=== PATIENT | female | born 1965 | race Caucasian/White ===

== ENCOUNTER 2023-10-14 17:38 | Inpatient (IN) | payer OTHER, SELFPAY ==
[2023-10-14] VITALS (10 sets, daily range): BP systolic 113–141; BP diastolic 51–71; BMI 40.6
--- NOTE | 2023-10-14 14:16 | W.PN.CARDCBS ---
Addendum entered and electronically signed by Jose R Cortes DO 10/14/23 17:39:
I saw and examined the patient.
The Branch Service Leader's note was reviewed and I agree with the note.
Comment:
GENERAL: no acute distress, obese
EYE: sclera anicteric
NECK: Supple, no JVD, no carotid bruit appreciated
ENT: normal nose, moist mucosal membranes
CARDIAC: Regular rate and rhythm, +S1/S2, 2/6 holosystolic apical murmur; no rubs, or gallops
CHEST/PULMONARY: Normal effort, clear breath sounds
ABDOMEN: Soft, without focal tenderness or distention
NEUROLOGICAL: Alert and oriented x1 (self only)
SKIN: Warm and dry
PSYCH: Normal and appropriate interaction.
Transfer from [facility] due to syncope requiring CPR and shock for polymorphic VT by EMS, 5-second (associated with nausea and vomiting) and 7-second pause (unclear if associated) and long QT (550-600ms; no prior history), intubated with
TTM. Additionally patient noted to have elevated LFTs, lactic acidosis, significant nausea vomiting following extubation, and new encephalopathy (compared to reported baseline by ) following extubation (A&O x 1). As noted, echo normal LVEF
(55-60%) from [facility].
Will defer implantation of permanent device at this time due to need for further workup regarding inability to lay flat (2/2 nausea and vomiting), possible infection, and encephalopathy. Plan to admit to hospitalist service and appreciate assistance
in her care. Consult to neurology and GI regarding the encephalopathy/neuro status and N/V. Patient has significant alcohol use history, monitor for withdrawal. Monitor on telemetry, daily EKGs. No QT prolonging medications. Zoll Pads on patient and
machine at bedside. Will obtain stat lab work to assess K/Mg/Phos.
Original Note:
Today's Communication / Plan
-
Delay ICD implant at this time until neuro, gi consults
no QT prolonging agents
labs/ekg now
Impression / Plan
-
This is the consult summary for [facility] service.
Full consult scanned into chart.
PCP: Jasmin Swann, DO
CDY: Filemon Hernandez, DO
HPI: This is a 57 y/o white female, PMH anxiety, MVP with mild MR, sees Dr. Hernandez at [facility] for routine followups. Drinks 2-3 glasses/wine nightly.
Suffered a cardiac arrest at home with approx 12 min downtime. EMS was called, CPR with ROSC, intubated and admitted to [facility] ICU. Prehospital EKG strips with polymorphic VT and she was shocked 3 times. Hypotensive with levophed support for a short
time.
EKG this morning in NSR 60s w/prolonged QTc 629msec. She had an episode of n/v that occurred with 5 seconds asystole. She did not get zofran. She then had a 7 second pause, unclear if related to n/v- asymptomatic, no loss of consciousness. Lactic
Acid was 2.1 and LFTs increased. Echo today with preserved LVSF, EF 55-60%, mild MR. Transfer today for EP eval and possible ICD implant.
On arrival, she is awake and alert but confused, doesn't remember names of her doctors, unable to state location, time, events leading to hospitalization.
Transferring from stretcher to bed, she became nauseous while lying flat, she sat up and vomited brown liquid.
IMPRESSION:
VT arrest with syncope
Polymorphic VT
CPR w/ROSC
Intubated for 24 hours with TTM- now extubated, off pressors
Possible anoxic brain injury
Prolonged QTc >600msec
Heart block with up to 7 second pauses
MVP with Mild MR
Nausea/vomiting
Elevated LFTs, lactic acid
Prior cholecystectomy
Daily ETOH
PLAN:
57 y/o, no sig PMH with VT arrest, post CPR with ROSC
needed ICU level care with hypotension/pressors, mechanical ventilation, what appears to be some anoxic brain injury
Unclear if elevated LFTs/Lactic Acid levels r/t sepsis v. shock liver
Tele reveals prolonged QTc >600msec and up to 7 second pauses
She is not on any QT prolonging medications and did not receive any zofran for n/v
Will need Neurology, GI consults
Unable to consent to procedure and is not available at this time
Eventual secondary prevention dual chamber ICD implant after Neuro, GI issues managed.
Will get 12 lead EKG now, with labs.
Case discussed with Dr. Gonsalez and Dr. Cortes
Followup cardiology care with Dr. Hernandez from [facility]
Progress Note - Sales And Support Center Agent
Subjective
Date of Service: October 14, 2023
Nauseous, vomiting
difficult time answering questions re: medical history, doctors
denies cp/palps/dyspnea
Physical Exam
Physical Exam
AAOx1, unable to state place, time, events
RRR S1 S2, soft systolic murmur
Bilat rhonchi, non labored, coughs and clears secretions
Soft abd, + bs, + n/v
Bilat extremities w/palpable distal pulses, no edema
--- NOTE | 2023-10-14 16:23 | PTCARENOTE ---
Pt brought to via EMS, on 2 LPM, NSR on monitor. Vomit in bag/emesis during transport, stated she's nauseas when flat. Mouthful of emesis after moved from stretcher to bed. She is disoriented to time and intermittently to place. Needs frequent
reminders about presence of presence of [facility] cath. She denies visual or auditory hallucinations. No tremors noted, not diaphoretic . Temporal temp was 99.1. Acu check 114. She was put on the monitor and maintained on 2 LPM. SR 70's with prolonged
QT (570)on admission EKG. Good pulses and perfusion throughout, normotensive. Sats 100 %, wet left base, productive cough at times. BALLARD but left pupil larger than right, left leg with slight drift. Seen by Dr Ramirez. She was wiped with CHG wipes.
Skin noted with bruising at former Elizabeth site /Rt wrist. Rt shoulder with puncture site like IO had been present. @ working 20 G IV 's in left arm. No gtts, NSS at ~100mls patent LFA. No belongings. [facility] RN reported no family present' Seferino/spouse
is at work'. [facility] labs collected. Nausea resolved without intervention.
[2023-10-14 16:38] LABS: Glucose - Point of Care 114 mg/dl (70-99)
[2023-10-14 16:48] LABS: Hematocrit 32.1 % (37.0-47.0); Hemoglobin 11.3 g/dL (12.0-16.0); Mean Corp Hgb Conc. 35.2 g/dL (33.0-37.0); Mean Corpuscular Hgb 28.5 pg (27.0-31.0); Mean Corpuscular Volume 81.1 fL (81.0-99.0); Mean Platelet Volume 9.5 fL (7.4-10.4); Platelet Count 225 10^3/uL (130-400); Red Blood Cell Count 3.96 10^6/uL (4.20-5.40); Red Cell Dist. Width 12.9 % (11.5-14.5); White Blood Cell Count 11.6 10^3/uL (4.8-10.8)
--- NOTE | 2023-10-14 16:48 | PTCARENOTE ---
Addendum: face with petechiae, bruising lower lip and tongue. Cortes patent with cloudy urine, quantity sufficient.
[2023-10-14 17:02] LABS: ALT (SGPT) 158 U/L (0-35); AST (SGOT) 144 U/L (14-36); Albumin 3.6 g/dl (3.5-5.0); Alkaline Phosphatase 108 U/L (38-126); Blood Urea Nitrogen 12 mg/dl (7-17); Calcium 8.4 mg/dl (8.4-10.2); Carbon Dioxide 23 mmol/L (22-30); Chloride 109 mmol/L (98-107); Estimated Creatinine Clearance 75 ml/min; Glucose 122 mg/dl (70-99); Magnesium 2.3 mg/dl (1.6-2.3); Phosphorus 4.2 mg/dl (2.5-4.5); Sodium 136 mmol/L (135-145); Total Bilirubin 0.8 mg/dl (0.2-1.3); Total Protein 6.2 g/dl (6.3-8.2); eGFR > 60.00
--- NOTE | 2023-10-14 17:39 | HPS.HSE ---
Family Physician
-
Family Physician: Jasmin Swann
Chief Complaint
-
cardiac arrest
History of Present Illness
57-year-old female with past medical history of anxiety, mitral valve prolapse with mild MR who suffered a cardiac arrest at home with approximately 12 minutes of downtime. EMS was called and CPR was performed with ROSC. Patient was intubated
admitted to [facility] ICU. Prehospital EKG strip showed polymorphic VT and she was shocked 3 times. She was hypotensive and required Levophed for short time. She was extubated after 24 hours with TTM.
EKG this morning showed normal sinus rhythm with prolonged QTc of 629. She had an episode of nausea and vomiting that occurred with 5 seconds of asystole. She did not receive Zofran. She then had a 7-second pause. On arrival she is awake and
alert but confused and does not remember the events leading up to hospitalization.
Patient continued to feel nauseous when lying flat and had an episode of vomiting and brought to [facility]. She complains of some shortness of breath and chest pain.
Patient drinks 2 glasses of wine per night the last drink being the day before she came to the hospital. She denies smoking or any drugs.
She is not aware of her family history because she was adopted.
Medical History
Past Medical History
Past Medical History: Reports Other (anxiety, mitral valve prolapse with mild MR)
Past Surgical History: Reports Cholecystectomy
Social History
Tobacco: Non-smoker
Alcohol: Daily
Drug: None
Family History
Family History: Not pertinent
Allergies / Home Medications
Allergies reflects when Allergies were last updated in [employer].
Home Medications with original date entered in [employer]
Allergy/Medication List:
Allergies
Allergy/AdvReac Type Severity Reaction Status Date / Time
aspirin Allergy Unknown Verified 10/14/23 15:58
Home Medications
Lactobacillus acidophilus 1 cap PO DAILY 10/14/23
cetirizine 10 mg tablet 10 mg PO DAILY PRN allergies 10/14/23
clonazepam 0.5 mg tablet 0.5 mg PO HS 10/14/23
dorzolamide 2 %-timolol 0.5 % (PF) eye drops 1 drp BOTH EYES BID 10/14/23
fluticasone propionate 50 mcg/actuation nasal spray,suspension 2 spray intranasal DAILY PRN allergies 10/14/23
multivitamin 1 tab PO DAILY 10/14/23
Review of Systems
-
History Source: Patient
A 12 point ROS was completed and negative except as noted: Yes
Constitutional: Reports No Symptoms
EENT: Reports No Symptoms
Respiratory: Reports No Symptoms
Cardiac: Reports No Symptoms
Abdomen/GI: Reports See HPI
: Reports No Symptoms
Musculoskeletal: Reports No Symptoms
Skin: Reports No Symptoms
Neurological: Reports No Symptoms
Endocrine: Reports No Symptoms
Hematologic/Lymphatic: Reports No Symptoms
Psych: Reports No Symptoms
Physical Exam
Vital Signs
Vital Signs
Temp Pulse Resp BP Pulse Ox
99.1 F 86 16 113/55 100
10/14/23 15:54 10/14/23 17:15 10/14/23 17:15 10/14/23 16:49 10/14/23 17:15
Physical Exam
General: Well Developed, Well Nourished and No Apparent Distress
HEENT: NormoCephalic, Moist mucous membranes and Atraumatic
Respiratory: Clear
Cardiac: S1/S2 and Regular Rhythm; No Murmur or Rub
GI: Soft, Non Tender, Non Distended and Normal Bowel Sounds; No Organomegaly
Rectal: Deferred by Provider
Musculoskeletal: No Clubbing, No Cyanosis and No Edema
Skin: No Rash
Neuro: Nonfocal/grossly intact
Laboratory Results
-
10/14/23 16:40
10/14/23 16:40
Laboratory Results
Total Bilirubin 0.8 mg/dl (0.2-1.3) 10/14/23 16:40
AST 144 U/L (14-36) H 10/14/23 16:40
ALT 158 U/L (0-35) H 10/14/23 16:40
Alkaline Phosphatase 108 U/L (38-126) 10/14/23 16:40
Data Reviewed
-
Lab Data: Labs Reviewed by me
Old Records: Reviewed
Impression/Plan
-
IMPRESSION:
PLAN:
# VT arrest status post CPR with ROSC
# Polymorphic VT
# Prolonged QTc
# Heart block up to 7-second pause
-EKG here shows QTc of 571
-Eventual ICD after neurological/GI issues managed
# Metabolic encephalopathy secondary to likely anoxic brain injury
-Patient AAO x 1
-Check urinalysis, chest x-ray
-Cardiology to consult neurology
-Cortes catheter placed
# Chest pain secondary to CPR
-Chest x-ray
# Nausea/emesis likely sequelae of cardiac arrest, possible component of alcohol withdrawal
-Avoid antinausea medication due to QTc prolonging effect
-NPO for now
-No abdominal tenderness or evidence of abdominal infection
-Monitor for alcohol withdrawal although not clearly in withdrawal at this time
-Start alcohol withdrawal protocol
-Cardiology to consult GI
# Transaminitis likely due to shock liver due to cardiac arrest/alcohol use
# History of cholecystectomy
-Continue to monitor
Mitral valve prolapse with mild mitral regurgitation
Alcohol use disorder
-Thiamine and folate
-Alcohol withdrawal protocol
Anxiety
-Continue clonazepam
Full code
DVT prophylaxis-heparin
NPO
[2023-10-14 18:28] LABS: Lactic Acid 1.8 mmol/L (0.7-2.0)
--- NOTE | 2023-10-14 19:20 | PTCARENOTE ---
1730 Received patient from cathodic protection technician, oriented to room and call stark. Patient needs frequent reminders about plan of care, as she is asking the same questions over and over. Bed alarm placed. now at bedside.
[2023-10-14] MEDS: COSOPT EYE DROPS 2 DROP BOTH EYES (19:32)
[2023-10-14] MEDS: THIAMINE INJECTION 200 MG IV (19:33)
[2023-10-14] MEDS: HEPARIN 5000 UNITS SC (19:33)
--- NOTE | 2023-10-14 21:33 | PTCARENOTE ---
Received pt from handoff. Pt confused/forgetful. Constantly needs reminding of plan of care. Does not remember what happened to her and how she ended up in hospital. Needs re-orienting that she is now at [facility]. Pt was able to
tell me her name and birthday but not her age. Pt w/ some expressive aphasia. Tele- SR 80-90s. Pt on RA sating 94-97% w/ occ. moist non-prod cough. Pt reports feeling nauseous. Cool washcloth placed on forehead. Reinforcing NPO status. Bed alarm
activated. Pt reports no CP/SOB. Currently resting in bed; call stark w/in reach.
[2023-10-14 21:42] LABS: Glucose - Point of Care 97 mg/dl (70-99)
[2023-10-14] MEDS: KLONOPIN 0.5 MG PO (22:04)
[2023-10-14] MEDS: NSS 1000 IV (23:28)
--- NOTE | 2023-10-14 23:49 | PTCARENOTE ---
No urine output noted for urinalysis. [facility] RN NURSERY made aware. Bladder scan obtained; 25 cc noted. Pt has no urgency to void. IVF ordered and administered per [facility] RN NURSERY.
--- NOTE | 2023-10-14 23:56 | PTCARENOTE ---
Pt w/ 4 beat run of non-sustained VT. Pt resting in bed; asymptomatic. Strip printed and placed in chart.
[2023-10-15 02:57] VITALS: BP 139/71
[2023-10-15 03:30] LABS: Urine Albumin Trace (Neg - Trace); Urine Bilirubin Negative (Negative); Urine Character Clear (Clear); Urine Color Yellow; Urine Glucose Negative (Negative); Urine Ketone 3+ (Negative); Urine Leukocyte Trace (Negative); Urine Nitrite Negative (Negative); Urine Occult Blood Negative (Negative); Urine Specific Gravity 1.025 (<1.030); Urine Urobilinogen Negative (Neg - 1+)
[2023-10-15 03:31] LABS: % Basophils 0.3 % (0-2); % Eosinophils 0.1 % (0-6); % Immature Granulocytes 0.3 % (0-0.5); % Lymphocytes 13.3 % (20.5-51.1); % Monocytes 5.6 % (1.7-9.3); % Neutrophils 80.4 % (42.2-75.2); Absolute Lymphocytes 1.6 10^3/uL (1.2-3.4); Absolute Monocytes 0.7 10^3/uL (0.1-0.6); Absolute Neutrophils 9.7 10^3/uL (1.4-6.5); Hematocrit 34.4 % (37.0-47.0); Hemoglobin 11.5 g/dL (12.0-16.0); Mean Corp Hgb Conc. 33.4 g/dL (33.0-37.0); Mean Corpuscular Volume 83.9 fL (81.0-99.0); Nucleated Red Blood Cells % 0 %; Platelet Count 227 10^3/uL (130-400); Red Cell Dist. Width 12.8 % (11.5-14.5)
[2023-10-15 03:58] LABS: ALT (SGPT) 135 U/L (0-35); AST (SGOT) 107 U/L (14-36); Albumin 3.5 g/dl (3.5-5.0); Alkaline Phosphatase 103 U/L (38-126); Blood Urea Nitrogen 10 mg/dl (7-17); Carbon Dioxide 20 mmol/L (22-30); Chloride 106 mmol/L (98-107); Estimated Creatinine Clearance 75 ml/min; Glucose 96 mg/dl (70-99); Potassium 3.6 mmol/L (3.5-5.1); Sodium 137 mmol/L (135-145); Total Bilirubin 0.8 mg/dl (0.2-1.3); eGFR > 60.00
[2023-10-15 04:27] LABS: Urine Bacteria Moderate (Negative); Urine Mucus Moderate; Urine Squamous Cell 16-20 /LPF (Few)
--- NOTE | 2023-10-15 06:46 | W.PN.UPDATE ---
Update Note
Progress Note Update
RN notified SAP PI DEVELOPER patient has low output in Cortes bag and Bladder scan only showed 50CC. Discussed it with Dr. Sal, will order fluids, will do chest Xray now to rule out CHF.
--- NOTE | 2023-10-15 07:33 | W.PN.CARDCBS ---
Addendum entered and electronically signed by Sandor Bush MD 10/15/23 09:09:
Patient seen and examined
Agree with CODEY Hernadez's note and assessment
Agree with CODEY Hernadez's plan
Examination:
She is alert and oriented to place today although was not yesterday
HEENT normocephalic atraumatic
JVP 6
Cor regular no murmur
Telemetry reviewed without arrhythmia except for 4 beats of NSVT
Lungs are clear to auscultation bilaterally
Abdomen soft nontender positive bowel sound
No extremity edema
Alert and x 3
PCP: Jasmin Swann DO
CDY: Filemon Hernandez DO
IMPRESSION:
Out of hospital VT arrest with loss of consciousness 10/13/23
approx 12 min downtime, CPR with ROSC, polymorphic VT shocked 3 times by EMSs/p TTM treatment and 24 hours of intubation at [facility] prior to transfer
Polymorphic VT shocked 3 times by EMS
Recurrent nausea and vomiting with associated sinus pauses
N/V with 5 second pause, N/V with 7 second pause and no LOC, no Zofran, possibly vagalPossible anoxic brain injury
Prolonged QTc >600msec
MVP with Mild MR
Elevated LFTs, lactic acid
Prior cholecystectomy
Daily ETOH
NSVT
Echo 10/14/23: [facility] study prior to transfer, EF 55-60%, mild MR
PLAN:
-Patient had an out of hospital cardiac arrest with 12 min downtime followed by CPR and ROSC with arrival of EMS, then polymorphic VT shocked 3 times by EMS, upon arrival to [facility] ER she was intubated and completed 24 hours of TTM. Following TTM
patient with episodes of N/V and sinus pauses without LOC and not associated with Zofran. QTc 571 on ECG reviewed by pa 10/14/23. Patient transferred to 10/14/23 for ICD.
-Patient with 4 beats NSVT on tele overnight, asymptomatic. No additional pauses
-Patient with N/V following TTM for VT arrest. Last episode was vomiting was 10/14/23 1630 shortly after arrival to , no associated pause at that time. She has ongoing nausea, but no more vomiting. Consider advancing diet to clears and increase
activity. Cont to follow and if she has recurrent N/V then she might need a GI evaluation.
-Patient will need an eventual cath once she can lay flat and is no longer vomiting. Could consider Thursday although given her breath medical issues would not be unreasonable to continue to improve on multiple fronts and consider cath plus or minus
device early next week
-Patient should not receive Zofran due to prolonged QT
-QTc 571 10/14/23. Repeat ECG 10/15/23. Avoid QT prolonging meds. Magnesium 2.3 on 10/14/23. Potassium 3.6 on 10/15/23. Will supplement with KCl 40 meq now for a goal potassium of greater than 4. Recheck BMP in AM
-LFTs improving
-Patient has no recollection of events. Reportedly she had 12 minutes of downtime. Neurology consulted to comment on concern for anoxic brain injury.
-Patient was drinking 2 glasses of wine nightly prior to this event. Not clearly in withdrawal.
HPI: This is a 57 y/o white female, PMH anxiety, MVP with mild MR, sees Dr. Hernandez at [facility] for routine followups. Drinks 2-3 glasses/wine nightly.
Suffered a cardiac arrest at home with approx 12 min downtime. EMS was called, CPR with ROSC, intubated and admitted to [facility] ICU. Prehospital EKG strips with polymorphic VT and she was shocked 3 times. Hypotensive with levophed support for a short
time.
EKG this morning in NSR 60s w/prolonged QTc 629msec. She had an episode of n/v that occurred with 5 seconds asystole. She did not get zofran. She then had a 7 second pause, unclear if related to n/v- asymptomatic, no loss of consciousness. Lactic
Acid was 2.1 and LFTs increased. Echo today with preserved LVSF, EF 55-60%, mild MR. Transfer today for EP eval and possible ICD implant.
On arrival, she is awake and alert but confused, doesn't remember names of her doctors, unable to state location, time, events leading to hospitalization.
Transferring from stretcher to bed, she became nauseous while lying flat, she sat up and vomited brown liquid.
Original Note:
Today's Communication / Plan
-
Neurology to see today
Less nauseous and asking to eat, consider advancing to clears and increasing activity, but if more N/V then consider GI consult
Eventual cath and ICD once able to lay flat without vomiting
Impression / Plan
-
PCP: Jasmin Swann, DO
CDY: Filemon Hernandez, DO
IMPRESSION:
Out of hospital VT arrest with loss of consciousness 10/13/23
approx 12 min downtime, CPR with ROSC, polymorphic VT shocked 3 times by EMS
s/p TTM treatment and 24 hours of intubation at [facility] prior to transfer
Polymorphic VT shocked 3 times by EMS
Recurrent nausea and vomiting with associated sinus pauses
N/V with 5 second pause, N/V with 7 second pause and no LOC, no Zofran, possibly vagal
Possible anoxic brain injury
Prolonged QTc >600msec
MVP with Mild MR
Elevated LFTs, lactic acid
Prior cholecystectomy
Daily ETOH
NSVT
Echo 10/14/23: [facility] study prior to transfer, EF 55-60%, mild MR
PLAN:
-Patient had an out of hospital cardiac arrest with 12 min downtime followed by CPR and ROSC with arrival of EMS, then polymorphic VT shocked 3 times by EMS, upon arrival to [facility] ER she was intubated and completed 24 hours of TTM. Following TTM
patient with episodes of N/V and sinus pauses without LOC and not associated with Zofran. QTc 571 on ECG reviewed by me 10/14/23. Patient transferred to 10/14/23 for ICD.
-Patient with 4 beats NSVT on tele overnight, asymptomatic. No additional pauses
-Patient with N/V following TTM for VT arrest. Last episode was vomiting was 10/14/23 1630 shortly after arrival to , no associated pause at that time. She has ongoing nausea, but no more vomiting. Consider advancing diet to clears and increase
activity. Cont to follow and if she has recurrent N/V then she might need a GI evaluation.
-Patient will need an eventual cath once she can lay flat and is no longer vomiting.
-Patient should not receive Zofran due to prolonged QT
-QTc 571 10/14/23. Repeat ECG 10/15/23. Avoid QT prolonging meds. Magnesium 2.3 on 10/14/23. Potassium 3.6 on 10/15/23. Will supplement with KCl 40 meq now for a goal potassium of greater than 4. Recheck BMP in AM
-LFTs improving
-Patient has no recollection of events. Reportedly she had 12 minutes of downtime. Neurology consulted to comment on concern for anoxic brain injury.
-Patient was drinking 2 glasses of wine nightly prior to this event. Not clearly in withdrawal.
HPI: This is a 57 y/o white female, PMH anxiety, MVP with mild MR, sees Dr. Hernandez at [facility] for routine followups. Drinks 2-3 glasses/wine nightly.
Suffered a cardiac arrest at home with approx 12 min downtime. EMS was called, CPR with ROSC, intubated and admitted to [facility] ICU. Prehospital EKG strips with polymorphic VT and she was shocked 3 times. Hypotensive with levophed support for a short
time.
EKG this morning in NSR 60s w/prolonged QTc 629msec. She had an episode of n/v that occurred with 5 seconds asystole. She did not get zofran. She then had a 7 second pause, unclear if related to n/v- asymptomatic, no loss of consciousness. Lactic
Acid was 2.1 and LFTs increased. Echo today with preserved LVSF, EF 55-60%, mild MR. Transfer today for EP eval and possible ICD implant.
On arrival, she is awake and alert but confused, doesn't remember names of her doctors, unable to state location, time, events leading to hospitalization.
Transferring from stretcher to bed, she became nauseous while lying flat, she sat up and vomited brown liquid.
Progress Note - Pony Ride Attendant
Subjective
Date of Service: October 15, 2023
No palpitations, less nauseous, asking to eat
Objective
Labs:
10/15/23 03:15
10/15/23 03:15
Labs
Hgb 11.5 g/dL (12.0-16.0) L 10/15/23 03:15
Hct 34.4 % (37.0-47.0) L 10/15/23 03:15
Plt Count 227 10^3/uL (130-400) 10/15/23 03:15
Sodium 137 mmol/L (135-145) 10/15/23 03:15
Potassium 3.6 mmol/L (3.5-5.1) 10/15/23 03:15
BUN 10 mg/dl (7-17) 10/15/23 03:15
Creatinine 0.5 mg/dL (0.6-1.0) L 10/15/23 03:15
Glucose 96 mg/dl (70-99) 10/15/23 03:15
Vital Signs and I&O:
Vital Signs
Temp Pulse Resp BP Pulse Ox
98.5 F 90 18 139/71 100
10/15/23 02:58 10/15/23 03:15 10/15/23 02:58 10/15/23 02:57 10/15/23 03:15
Vital Signs
Temp Pulse Resp BP Pulse Ox
98.5 F 90 18 139/71 100
10/15/23 02:58 10/15/23 03:15 10/15/23 02:58 10/15/23 02:57 10/15/23 03:15
Intake & Output
02/0610/14/23 10/15/23 10/16/23
06:59 06:59 06:59 06:59
Intake Total 100 / 100
Output Total 385 / 385
Balance -285 / -285
Physical Exam
Physical Exam
GEN: No distress, AAO to person and place, but not oriented to situation
HEENT: EOMI, MMM
LUNGS: CTA B/L, no wheezes or rales
CV: Reg, S1/S2, no murmur
ABD: soft, BS+, NT, ND
EXT: No clubbing, cyanosis, lesions or edema B/L
NEURO: Gross non-focal
SKIN: Warm, dry and pink. No rash
[2023-10-15 07:46] VITALS: BP 143/67
--- NOTE | 2023-10-15 08:19 | W.PN.HOSP.TC ---
Today's Communication/Plan
-
timing of cath and ICD up to cardiology. Neuro and GI to be consulted if cardiology feels necessary.
Assessment / Plan
Assessment / Plan
57-year-old female with past medical history of anxiety, mitral valve prolapse with mild MR who suffered a cardiac arrest at home with approximately 12 minutes of downtime.� EMS was called and CPR was performed with ROSC.� Patient was intubated
admitted to [facility] ICU.� Prehospital EKG strip showed polymorphic VT and she was shocked 3 times.� She was hypotensive and required Levophed for short time.� She was extubated after 24 hours with TTM. EKG on the morning of transfer to
showed normal sinus rhythm with prolonged QTc of 629.� She had an episode of nausea and vomiting that occurred with 5 seconds of asystole.� She did not receive Zofran.� She then had a 7-second pause.
Gen: NAD, AAOx2.
Eyes: EOMI, PERRLA, no scleral icterus.
Neck: supple.
CV: RRR, +S1/S2, no m/r/g.
Resp: CTAB, no rales, wheezes, or rhonchi.
Abd: +BS, soft, NT, ND
Skin: No rashes.
Neuro: CN 2-12 intact, non-focal.
Psych: Normal mood and affect.
VT arrest status post CPR with ROSC, Polymorphic VT, Prolonged QTc, Heart block up to 7-second pause
-EKG here shows QTc of 571
-for cath, then ICD
Acute encephalopathy secondary to likely anoxic brain injury:
-currently no evidence of metabolic derangements that would cause encephalopathy
Chest pain secondary to CPR:
-CXR: Mild elevation of right hemidiaphragm. Minor bibasilar opacity most likely representing subsegmental atelectasis. No pneumothorax.
Nausea/emesis:
-likely sequelae of cardiac arrest, possible component of alcohol withdrawal
-Avoid antiemetics due to QTc prolonging effect
-NPO for now
-No abdominal tenderness or evidence of abdominal infection
-Monitor for alcohol withdrawal although not clearly in withdrawal at this time
-cont MSAS protocol (thiamine/folate/PRN ativan)
-cardiology may c/s GI
Transaminitis:
-likely due to shock liver due to cardiac arrest/alcohol use
-note, h/o cholecystectomy
Mitral valve prolapse with mild mitral regurgitation
Alcohol use disorder
-Thiamine and folate
-Alcohol withdrawal protocol
Anxiety
-Continue clonazepam
Discussed with cardiology.
Pt's updated at bedside.
FULL/heparin
Anticipated Discharge: > 48 hours
Subjective/Interval History
-
Date of Service: October 15, 2023
c/o headache. Denies CP/SOB.
Objective Data
-
Labs:
Laboratory Results
10/15/23
03:15
WBC 12.0 H
Hgb 11.5 L
Hct 34.4 L
Plt Count 227
Sodium 137
Potassium 3.6
Chloride 106
Carbon Dioxide 20 L
BUN 10
Creatinine 0.5 L
Glucose 96
Calcium 9.0
Total Bilirubin 0.8
AST 107 H
ALT 135 H
Alkaline Phosphatase 103
Vital Signs:
Vital Signs
Temp Pulse Resp BP Pulse Ox
98.8 F 88 20 143/67 98
10/15/23 07:44 10/15/23 08:00 10/15/23 07:44 10/15/23 07:46 10/15/23 08:00
I&O
10/14/23 10/15/23 10/16/23
06:59 06:59 06:59
Intake Total 100 / 100
Output Total 385 / 385
Balance -285 / -285
[2023-10-15] MEDS: COSOPT EYE DROPS 1 DROP BOTH EYES ×2 (08:51→19:39)
[2023-10-15] MEDS: HEPARIN 5000 UNITS SC ×2 (08:51→19:38)
[2023-10-15] MEDS: FOLVITE 1 MG PO (08:53)
[2023-10-15] MEDS: THERAGRAN 1 TABLET PO (08:53)
[2023-10-15] MEDS: VISBIOME 1 CAP PO (08:54)
[2023-10-15] MEDS: THIAMINE INJECTION 200 MG IV ×2 (08:54→19:38)
--- NOTE | 2023-10-15 09:34 | PTCARENOTE ---
Rec'd pt from prev nsg shift AAOx1 to self. Pt appears to have short term memory issues r/t recent VT arrest. Pt has no recollection of events since Thursday when the arrest occurred. Pt c/o anterior headache, unable to rate. Spoke w/MD & due to Dx &
allergy to ASA, pt is unable to have medication for the headache at this time. Lights dimmed in rm & ice pack provided to pt for comfort. VS stable. SpO2 99-100% on 2L O2, O2 removed & pt on RA at this time. Pt w/bed alarm in place. Call stark within
reach. Plan of care ongoing.
[2023-10-15] MEDS: KCL 40 MEQ PO (11:34)
--- NOTE | 2023-10-15 12:15 | CM ---
Chart reviewed. Patient is independent of ADLS, lives with her in a 2 STH, total of 4 SIERRA, 0 DME. Patient currently with no discharge needs. CM to follow
[2023-10-15 12:18] VITALS: BP 146/71
--- NOTE | 2023-10-15 15:17 | CON.NEURO4 ---
Consultation - Neurology 4
-
CONSULTING PHYSICIAN: Levi Yip
REFERRING PHYSICIAN: Hospitalist/Cardiology
DICTATED BY: Levi Yip
DATE/TIME OF REQUEST: 10/15/23
DATE/TIME OF CONSULTATION: 10/15/23
Reason for Consultation: History cardiac arrest, TTM
History of Present Illness:
Patient is a 57-year-old woman with a past medical history of anxiety and mitral valve prolapse who presents to the hospital as a transfer from [place] after she had a cardiac arrest at home. She had had polymorphic ventricular tachycardia and
received defibrillation 3 times with ROSC, estimated downtime was around 12 minutes she admitted to [place] ICU and underwent intubation, targeted temperature management. Patient was able to be extubated and was transferred to our hospital for
evaluation for pacemaker/AICD.
Patient had not had any warning before that she been feeling fine and is quite shocked that this all happened. Right now she has a bit of a headache but no chest pain or breathing difficulties. Denies any weakness speech difficulty or vision
abnormality.
Past Medical History:
Surgical History: Cholecystectomy
Family History: Non-contributory
Social History: Works in [employer] fairly physical job, and lives in [place] with her , one grown child, no tobacco and about 1-2 drinks wine per night no drugs
Allergies: Aspirin
Home Medications:
Review of Symptoms:
Patient denies any fever, headache, chest pain, shortness of breath, GI or symptoms.
Physical Exam:
Well-appearing middle-aged woman no signs of head or neck trauma well-groomed well-dressed no distress oropharynx clear heart rate regular breathing unlabored abdomen soft nontender no lower extremity edema
Neurologic Examination:
Patient is awake and alert she is oriented to hospital, not the month, knows the year, can name the president with some hands, can name about 4-5 states that [place] but not able to name any surrounding countries around [place] continue
about 3 other countries in the world, can name about 3 states within the [place], knows about [place] conflict, no aphasia, praxis is normal, answers questions appropriately, obeys three-step commands, memory is impaired 0/5 recall to 5 items
after 5-minutes On cranial nerve assessment, pupils are 3 mm bilateral, round and reactive to light and accommodation. Visual [place] are full. Extraocular movements are intact. Facial sensations are intact and bilaterally symmetrical, there is no
facial asymmetry. Hearing is intact bilaterally to normal conversation volume. Tongue palate and uvula are midline. Sternocleidomastoid strengths are full bilaterally. Motor strengths are 5/5 bilateral upper and lower extremities on medical
research [place] scale. There is no drift or involuntary movement noted. Deep tendon reflexes are 2+ bilateral upper and lower extremities and Babinski is absent bilaterally. Sensations of pain, touch, temperature and vibration are intact and
bilaterally symmetrical. There was no extinction noted on double simultaneous stimulation. Coordination is intact by finger to nose bilaterally.
Impressions
1. Relatively mild cognitive deficits after cardiac arrest, targeted temperature management and had shockable rhythm in the form of ventricular tachycardia. Some of this may be residual effects of a toxic metabolic encephalopathy/delirium due to
intubation sedation and critical illness. It is possible she has a very minor anoxic brain injury but I suspect her brain MRI will be negative. Overall she has a good neurologic prognosis.
2.
3.
4.
Recommendations:
1. Basic neurologic checks
2. Check MRI brain without contrast, although not likely to acid changer will aide in prognosis, assessing if any anoxic brain injury present, and patient not able to get MRI soon after pacemaker/AICD is placed
3. Minimize sedating medications as able
4. Encourage activity and sunlight to help keep adequate and normal sleep-wake cycles and minimize delirium
5. Continue monitoring cardiac telemetry
6. No indication for antiseizure medication as
Will follow up after brain MRI
Discussed patient care with: Patient, cardiology PA
[2023-10-15 15:37] VITALS: BP 153/76
[2023-10-15] MEDS: TYLENOL 1000 MG PO (16:02)
[2023-10-15] MEDS: FLUSH (NSS) 2 FLUSH IV (16:03)
[2023-10-15] MEDS: TORADOL 15 MG IV (16:03)
--- NOTE | 2023-10-15 16:17 | PTCARENOTE ---
Neuro in to see pt. Pt still c/o 7-04/16 anterior head pain. Toradol IV x 1 dose ordered by cardiology administered as ordered. Pt continues to be AAOx1 to self. She is forgetful to place & time. She also keeps stating her current age as 48. Pt
reorients easily but forgets again within approx 10-15 mins. Pt's blackwell catheter D/C'd & hat placed for measuring. Bed alarm also remains in place for close monitoring of pt safety. Call stark within reach & pt does ring appropriately at times for
assistance. Plan of care ongoing.
[2023-10-15 17:36] LABS: Troponin I 0.024 ng/ml
[2023-10-15] MEDS: TYLENOL 650 MG PO (19:38)
[2023-10-15 19:50] VITALS: BP 148/75
[2023-10-15 22:52] VITALS: BP 153/81
[2023-10-15] MEDS: KLONOPIN 0.5 MG PO (22:53)
--- NOTE | 2023-10-15 23:15 | PTCARENOTE ---
Pt rec'd at change of shift in bed with spouse at bedside. Pt with c/o severe h/a asking for Tylenol. Tylenol given and ice pack applied per pt request.
Pt oriented to name, date and place. Missed year '2022'. pt also freq repeats herself. 'I can't believe what happened, I'm only almost 58. My chest hurts'. bed alarm in use. Pt ambulated with staff to bathroom. C/O feeling slightly dizzy when
up. Tolerated standing and brushing her teeth. voided 250 cc urine, PVR 0. call stark within reach
[2023-10-16] VITALS (12 sets, daily range): BP systolic 136–166; BP diastolic 64–81
[2023-10-16] MEDS: TYLENOL 650 MG PO ×2 (02:47→20:41)
--- NOTE | 2023-10-16 05:42 | PTCARENOTE ---
Pt continues with c/o h/a, unrelieved completely with Tylenol. Noted to be impulsive when getting oob to bathroom. bed alarm remains active.
[2023-10-16 05:45] LABS: ALT (SGPT) 90 U/L (0-35); AST (SGOT) 53 U/L (14-36); Albumin 3.2 g/dl (3.5-5.0); Alkaline Phosphatase 103 U/L (38-126); Blood Urea Nitrogen 7 mg/dl (7-17); Carbon Dioxide 23 mmol/L (22-30); Chloride 101 mmol/L (98-107); Estimated Creatinine Clearance 75 ml/min; Glucose 110 mg/dl (70-99); Magnesium 1.8 mg/dl (1.6-2.3); Potassium 3.5 mmol/L (3.5-5.1); Sodium 134 mmol/L (135-145); Total Bilirubin 0.9 mg/dl (0.2-1.3); Total Protein 5.8 g/dl (6.3-8.2); eGFR > 60.00
--- NOTE | 2023-10-16 05:53 | W.PN.HOSP.TC ---
Today's Communication/Plan
-
see bold
Assessment / Plan
Assessment / Plan
57-year-old female with past medical history of anxiety, mitral valve prolapse with mild MR who suffered a cardiac arrest at home with approximately 12 minutes of downtime.� EMS was called and CPR was performed with ROSC.� Patient was intubated
admitted to [facility] ICU.� Prehospital EKG strip showed polymorphic VT and she was shocked 3 times.� She was hypotensive and required Levophed for short time.� She was extubated after 24 hours with TTM. EKG on the morning of transfer to
showed normal sinus rhythm with prolonged QTc of 629.� She had an episode of nausea and vomiting that occurred with 5 seconds of asystole.� She did not receive Zofran.� She then had a 7-second pause.
Gen: NAD, Awake and alert
Eyes: EOMI, PERRLA, no scleral icterus.
Neck: supple.
CV: remains RRR, +S1/S2, no m/r/g.
Resp: remains CTAB, no rales, wheezes, or rhonchi.
Abd: +BS, soft, NT, ND
Skin: No rashes.
Neuro: CN 2-12 intact, non-focal.
Psych: Normal mood and affect.
VT arrest status post CPR with ROSC, Polymorphic VT, Prolonged QTc, Heart block up to 7-second pause
-EKG here shows QTc of 571
-for cath, then ICD
Acute encephalopathy secondary to likely mild anoxic brain injury:
-currently no evidence of metabolic derangements that would cause encephalopathy
-MRI brain pending
Chest pain secondary to CPR:
-CXR: Mild elevation of right hemidiaphragm. Minor bibasilar opacity most likely representing subsegmental atelectasis. No pneumothorax.
Nausea/emesis:
-likely sequelae of cardiac arrest, possible component of alcohol withdrawal
-Avoid antiemetics due to QTc prolonging effect
-No abdominal tenderness or evidence of abdominal infection
-no evidence of EtOH withdrawal at this time
-cont MSAS protocol (thiamine/folate/PRN ativan)
-cardiology may c/s GI
Mild Transaminitis:
-likely due to shock liver due to cardiac arrest/alcohol use
-note, h/o cholecystectomy
-improving
Mitral valve prolapse with mild mitral regurgitation
Alcohol use disorder
-Thiamine and folate
-Alcohol withdrawal protocol
Anxiety
-Continue clonazepam
FULL/heparin
Anticipated Discharge: > 48 hours
Subjective/Interval History
-
Date of Service: October 16, 2023
Denies CP/SOB.
Objective Data
-
Labs:
Laboratory Results
10/16/23
04:39
Sodium 134 L
Potassium 3.5
Chloride 101
Carbon Dioxide 23
BUN 7
Creatinine 0.5 L
Glucose 110 H
Calcium 9.0
Total Bilirubin 0.9
AST 53 H
ALT 90 H
Alkaline Phosphatase 103
Vital Signs:
Vital Signs
Temp Pulse Resp BP Pulse Ox
98.0 F 76 20 156/80 94
10/16/23 04:22 10/16/23 04:30 10/16/23 04:22 10/16/23 04:22 10/16/23 04:22
I&O
10/14/23 10/15/23 10/16/23
06:59 06:59 06:59
Intake Total 100 / 100 2500 / 2500
Output Total 385 / 385 1800 / 1800
Balance -285 / -285 700 / 700
[2023-10-16] MEDS: HEPARIN 5000 UNITS SC ×2 (08:03→20:41)
--- NOTE | 2023-10-16 08:03 | W.PN.NEURO.1 ---
Today's Communication / Plan
-
Consider MRI brain without contrast if worsening of cognition
Consult speech therapy for additional cognitive therapy
Neuro Assessment/Plan
Assessment
Impressions
1.� � Relatively mild cognitive deficits after cardiac arrest, targeted temperature management and had shockable rhythm in the form of ventricular tachycardia.� Some of this may be residual effects of a toxic metabolic encephalopathy/delirium due to
intubation sedation and critical illness.� It is possible she has a very minor anoxic brain injury but I suspect her brain MRI will be negative.� Overall she has a good neurologic prognosis.
Plan
Recommendations:�
Consider MRI brain without contrast if worsening of cognition
Consult speech therapy for additional cognitive therapy
No indication for antiseizure medication
Will follow as needed.
Subjective/Objective
Subjective Data
Date of Service: October 16, 2023
Objective Data
Vital Signs
Temp Pulse Resp BP Pulse Ox
36.6 C 85 16 156/80 96
10/16/23 07:34 10/16/23 07:34 10/16/23 07:34 10/16/23 04:22 10/16/23 07:34
Lab Results
10/15/23 03:15
10/16/23 04:39
Sodium 134 mmol/L (135-145) L 10/16/23 04:39
Potassium 3.5 mmol/L (3.5-5.1) 10/16/23 04:39
BUN 7 mg/dl (7-17) 10/16/23 04:39
Glucose 110 mg/dl (70-99) H 10/16/23 04:39
Calcium 9.0 mg/dl (8.4-10.2) 10/16/23 04:39
Phosphorus 4.2 mg/dl (2.5-4.5) 10/14/23 16:40
Patient Allergies
aspirin Allergy (Verified 10/15/23 15:26)
made her feel lightheaded
Modified Dada Score (MRS)
-
MRS Score:
Data Reviewed
-
Labs: Report Reviewed
Reviewed with: Physician
Old Records: Summarized
Past History
Past History
ED Past Medical History: Arrthythmia (Polymorphic ventricular tachycardia), Psychiatric and Other (Sudden cardiac October 2023)
ED Past Surgical History: Cholecystectomy
Social History
Tobacco: Non-smoker
Alcohol: Occasional
Drug: None
Personal:
Living: with family
Family History
Family History: Other
Medications
-
Medications:
Generic Name Dose Route Start Last Admin
Trade Name Freq PRN Reason Stop Dose Admin
Acetaminophen 650 mg 10/15/23 15:35 10/16/23 02:47
Acetaminophen 325 Mg Tablet PO 11/12/23 15:34 650 mg
Q4HPRN PRN Administration
Headache
Cetirizine HCl 10 mg 10/14/23 17:42
Cetirizine Hcl 10 Mg Tablet PO 11/11/23 17:41
DAILYPRN PRN
allergies
Clonazepam 0.5 mg 10/14/23 22:00 10/15/23 22:53
Clonazepam 0.5 Mg Tablet PO 11/11/23 21:59 0.5 mg
HS CELESTINO Administration
Dorzolamide/Timolol 0 drop 10/14/23 20:00 10/15/23 19:39
Dorzolamide/Timolol (Ophth Soln.) 10 Ml Bottle BOTH EYES 11/11/23 19:59 1 drop
BID CELESTINO Administration
Folic Acid 1 mg 10/15/23 08:00 10/15/23 08:53
Folic Acid 1 Mg Tablet PO 11/12/23 07:59 1 mg
DAILY CELESTINO Administration
Heparin Sodium 5,000 units 10/14/23 20:00 10/15/23 19:38
Heparin 5,000 Units/Ml 1 Ml Vial SC 11/11/23 19:59 5,000 units
Q12 CELESTINO Administration
Folic Acid 1 mg/ Sodium 50.2 mls @ 200.8 mls/hr 10/14/23 17:40
Chloride IV 11/11/23 17:39
DAILYPRN PRN
if NPO
Lactobacillus/Bifidobacterium 1 cap 10/15/23 08:00 10/15/23 08:54
Lactobac/Bifidobac (Visbiome) PO 11/12/23 07:59 1 cap
DAILY CELESTINO Administration
Lorazepam 1 mg 10/14/23 17:40
Lorazepam 1 Mg Tablet PO 11/11/23 17:39
Q2HPRN PRN
MSAS 5-7
Lorazepam 1 mg 10/14/23 17:40
Lorazepam 2 Mg/Ml Vial IV 11/11/23 17:39
Q1HPRN PRN
MSAS 8-11
Lorazepam 2 mg 10/14/23 17:40
Lorazepam 2 Mg/Ml Vial IV 11/11/23 17:39
Q1HPRN PRN
MSAS > 11
Multivitamins Therapeutic 1 tablet 10/15/23 08:00 10/15/23 08:53
Multivitamin Tablet PO 11/12/23 07:59 1 tablet
DAILY CELESTINO Administration
Sodium Chloride 0 ml 10/14/23 17:40
Sodium Chloride 0.9% (Preservative Free) 10 Ml Vial IV 11/11/23 17:39
PRN PRN
To dilute IV Ativan
Protocol
Sodium Chloride 0 flush 10/14/23 18:00 10/15/23 16:03
Sodium Chloride 0.9% (Flush) Syringe IV 11/11/23 17:59 2 flush
PER PROTOCOL CELESTINO Administration
Thiamine HCl 200 mg 10/14/23 20:00 10/15/23 19:38
Thiamine (100 Mg/Ml) 2 Ml Vial IV 10/17/23 08:01 200 mg
Q12 CELESTINO Administration
Thiamine HCl 100 mg 10/17/23 20:00
Thiamine 100 Mg Tablet PO 11/14/23 19:59
BID CELESTINO
[2023-10-16] MEDS: THIAMINE INJECTION 200 MG IV ×2 (08:04→20:41)
[2023-10-16] MEDS: THERAGRAN 1 TABLET PO (08:04)
[2023-10-16] MEDS: COSOPT EYE DROPS 1 DROP BOTH EYES ×2 (08:04→20:40)
[2023-10-16] MEDS: FOLVITE 1 MG PO (08:04)
[2023-10-16] MEDS: VISBIOME PO (08:05)
[2023-10-16] MEDS: PLAVIX 600 MG PO (09:57)
--- NOTE | 2023-10-16 11:17 | PTCARENOTE ---
Pt still AAOx1-2, primarily to self, but occasionally to time & or place as well. Needs frequent reorienting to details of what's happened since her cardiac event. Pt tearful & anxious at times. Emotional support provided by this RN. VS stable. Pt's
spouse updated by & this RN. Report given to merchandise pickup/receiving associate & pt transported to medical laboratory technicians in her bed for procedure. Plan of care ongoing.
--- NOTE | 2023-10-16 11:57 | ITS.CL.CATH ---
[facility] - Catheterization
Cardiac Catheterization
Procedure Report:
LEFT HEART CATHETERIZATION
Date of Procedure: October 16, 2023
Referring: Dr. Sandor Bush
PROCEDURES:
1. Left heart catheterization with coronary and single-plane left radiography
INDICATION: Out of hospital cardiac arrest
ACCESS: Right radial artery, 6 [place] sheath
HEMODYNAMICS : (mmHg)
AO (s/d) : 156/83
LV (s/d) : 159/12
LVEDP : 22
CORONARY FINDINGS
DOMINANCE: Right
LEFT MAIN: Normal
LEFT ANTERIOR DESCENDING: The LAD arises normally from the left main and runs in the anterior interventricular groove. The LAD is widely patent and wraps around the apex supplying a portion of the inferior wall. 2 sizable diagonal branches arise
from the mid LAD. Both diagonal branches are widely patent
CIRCUMFLEX: The circumflex is a moderate caliber nondominant vessel that supplies a single sizable obtuse marginal branch. Minor irregularities are noted
RIGHT CORONARY ARTERY: Large-caliber dominant vessel that is widely patent supplying a moderate-sized PDA and posterolateral
VENTRICULOGRAPHY: Left ventriculography is performed in an ROSEN[place]UM projection. The digital single-plane left ventricular ejection fraction is visually estimated at 50%
RADIATION SUMMARY: Fluoro Time (min): 3.0, Dose (mGy): 237, DAP (Gy.cm2) : 20.8
Closure Device: TR band
CONCLUSIONS
1. Normal coronary arteries
2. Preserved left ventricular systolic function
RECOMMENDATIONS
1. ICD planned next week
Copy to: Dr. Giuliano Dsouza
--- NOTE | 2023-10-16 12:02 | CM ---
Chart reviewed. Patient is independent of ADLS, lives with her in a 2 STH, total of 3 SIERRA, 0 DME. Patient currently with no discharge needs. CM to follow
--- NOTE | 2023-10-16 12:47 | PTCARENOTE ---
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 No c/o CP or SOB. R radial band in place w/no signs or symptoms of bleeding or hematoma. Pt's spouse at bedside & this RN explained to pt & spouse current activity restrictions & plan
of care post cardiac cath. VS stable at time time w/pt SR on telemetry monitoring. Call stark within reach & no addtl needs at this time. Plan of care ongoing.
[2023-10-16] MEDS: KLONOPIN 0.5 MG PO (22:26)
[2023-10-17 03:38] VITALS: BP 155/72
[2023-10-17 04:06] LABS: Hematocrit 34.8 % (37.0-47.0); Hemoglobin 12.1 g/dL (12.0-16.0); Mean Corp Hgb Conc. 34.8 g/dL (33.0-37.0); Mean Corpuscular Volume 80.6 fL (81.0-99.0); Platelet Count 251 10^3/uL (130-400); Red Blood Cell Count 4.32 10^6/uL (4.20-5.40); White Blood Cell Count 13.4 10^3/uL (4.8-10.8)
[2023-10-17 04:35] LABS: Blood Urea Nitrogen 9 mg/dl (7-17); Calcium 9.2 mg/dl (8.4-10.2); Carbon Dioxide 26 mmol/L (22-30); Chloride 102 mmol/L (98-107); Estimated Creatinine Clearance 75 ml/min; Glucose 101 mg/dl (70-99); Potassium 3.1 mmol/L (3.5-5.1); Sodium 139 mmol/L (135-145); eGFR > 60.00
[2023-10-17 06:48] VITALS: BP 168/82
--- NOTE | 2023-10-17 08:13 | W.PN.HOSP.TC ---
Today's Communication/Plan
-
see bold
Assessment / Plan
Assessment / Plan
57-year-old female with past medical history of anxiety, mitral valve prolapse with mild MR who suffered a cardiac arrest at home with approximately 12 minutes of downtime.� EMS was called and CPR was performed with ROSC.� Patient was intubated
admitted to [facility] ICU.� Prehospital EKG strip showed polymorphic VT and she was shocked 3 times.� She was hypotensive and required Levophed for short time.� She was extubated after 24 hours with TTM. EKG on the morning of transfer to
showed normal sinus rhythm with prolonged QTc of 629.� She had an episode of nausea and vomiting that occurred with 5 seconds of asystole.� She did not receive Zofran.� She then had a 7-second pause.
Gen: NAD, Awake and alert
Eyes: EOMI, PERRLA, no scleral icterus.
Neck: supple.
CV: continues to remain RRR, +S1/S2, no m/r/g.
Resp: continues to remain CTAB, no rales, wheezes, or rhonchi.
Abd: +BS, soft, NT, ND
Skin: No rashes. No LE edema.
Neuro: CN 2-12 intact, non-focal.
Psych: Normal mood and affect.
VT arrest status post CPR with ROSC, Polymorphic VT, Prolonged QTc, Heart block up to 7-second pause
-EKG here shows QTc of 571
-10/16/23 cath: Normal coronary arteries. Preserved left ventricular systolic function
-for ICD
Acute encephalopathy:
-currently no evidence of metabolic derangements that would cause encephalopathy
-MRI brain: There are no MR findings considered highly suggestive of hypoxic/ischemic encephalopathy. No evidence for acute intracranial abnormality. Moderate T2 and FLAIR white matter hyperintensities as described, greater than expected for a
57-year-old patient.
-neuro saw in c/s
Chest pain secondary to CPR:
-CXR: Mild elevation of right hemidiaphragm. Minor bibasilar opacity most likely representing subsegmental atelectasis. No pneumothorax.
Nausea/emesis:
-likely sequelae of cardiac arrest, possible component of alcohol withdrawal
-Avoid antiemetics due to QTc prolonging effect
-No abdominal tenderness or evidence of abdominal infection
-no evidence of EtOH withdrawal at this time
-cont MSAS protocol (thiamine/folate/PRN ativan)
Mild Transaminitis:
-likely due to shock liver due to cardiac arrest/alcohol use
-note, h/o cholecystectomy
-improving
Other problems:
Hypokalemia: PO K
Mitral valve prolapse with mild mitral regurgitation
Alcohol use disorder: Thiamine and folate. Alcohol withdrawal protocol.
Anxiety: Continue clonazepam
FULL/heparin
Anticipated Discharge: > 48 hours
Subjective/Interval History
-
Date of Service: October 17, 2023
Denies chest pain at rest or shortness of breath. Reports some dry cough and chest pain when she coughs.
Objective Data
-
Labs:
Laboratory Results
10/17/23
03:42
WBC 13.4 H
Hgb 12.1
Hct 34.8 L
Plt Count 251
Sodium 139
Potassium 3.1 L
Chloride 102
Carbon Dioxide 26
BUN 9
Creatinine 0.5 L
Glucose 101 H
Calcium 9.2
Vital Signs:
Vital Signs
Temp Pulse Resp BP Pulse Ox
98.7 F 80 18 168/82 99
10/17/23 06:49 10/17/23 07:00 10/17/23 06:49 10/17/23 06:48 10/17/23 06:49
I&O
10/16/23 10/17/23 10/18/23
06:59 06:59 06:59
Intake Total 2500 / 2500 1940 / 1940
Output Total 1800 / 1800 2400 / 2400
Balance 700 / 700 -460 / -460
[2023-10-17 08:51] LABS: Magnesium 1.8 mg/dl (1.6-2.3)
[2023-10-17] MEDS: VISBIOME 1 CAP PO (09:16)
[2023-10-17] MEDS: KCL 40 MEQ PO ×2 (09:16→20:56)
[2023-10-17] MEDS: THERAGRAN 1 TABLET PO (09:16)
[2023-10-17] MEDS: HEPARIN 5000 UNITS SC ×2 (09:17→20:55)
[2023-10-17] MEDS: FOLVITE 1 MG PO (09:17)
[2023-10-17] MEDS: THIAMINE INJECTION 200 MG IV (09:18)
[2023-10-17] MEDS: TYLENOL 650 MG PO (09:21)
--- NOTE | 2023-10-17 09:46 | W.PN.CARDCBS ---
Today's Communication / Plan
-
Continue to observe
ICD implant on Thursday
Impression / Plan
-
PCP: Jasmin Swann, DO
CDY: Filemon Hernandez, DO
IMPRESSION:
Out of hospital VT arrest with loss of consciousness 10/13/23
approx 12 min downtime, CPR with ROSC, polymorphic VT shocked 3 times by EMS
s/p TTM treatment and 24 hours of intubation at [facility] prior to transfer
Polymorphic VT shocked 3 times by EMS
Recurrent nausea and vomiting with associated sinus pauses
N/V with 5 second pause, N/V with 7 second pause and no LOC, no Zofran, possibly vagal
Possible anoxic brain injury
Prolonged QTc >600msec
MVP with Mild MR
Elevated LFTs, lactic acid
Prior cholecystectomy
Daily ETOH
NSVT
Echo 10/14/23: [facility] study prior to transfer, EF 55-60%, mild MR
Cardiac catheterization 10/16/2023: Minimal luminal irregularities, EF 50%, LVEDP is 22
PLAN:
She looks well at present, conversant, states that her mental status is normal. MRI did not show obvious evidence of anoxic encephalopathy. Best management practice per hospitalist and neurology.
QTc is top normal. This does not require intervention other than supplementation of potassium.
Cath site looks good. Results of cardiac catheterization reassuring no CAD, normal LV function
Supplement potassium for potassium of 3.1.
She is receiving IV fluid, we can cap this.
Plan is for ICD placement on Thursday.
HPI: This is a 57 y/o white female, PMH anxiety, MVP with mild MR, sees Dr. Hernandez at [facility] for routine followups. Drinks 2-3 glasses/wine nightly.
Suffered a cardiac arrest at home with approx 12 min downtime. EMS was called, CPR with ROSC, intubated and admitted to [facility] ICU. Prehospital EKG strips with polymorphic VT and she was shocked 3 times. Hypotensive with levophed support for a short
time.
EKG this morning in NSR 60s w/prolonged QTc 629msec. She had an episode of n/v that occurred with 5 seconds asystole. She did not get zofran. She then had a 7 second pause, unclear if related to n/v- asymptomatic, no loss of consciousness. Lactic
Acid was 2.1 and LFTs increased. Echo today with preserved LVSF, EF 55-60%, mild MR. Transfer today for EP eval and possible ICD implant.
On arrival, she is awake and alert but confused, doesn't remember names of her doctors, unable to state location, time, events leading to hospitalization.
Transferring from stretcher to bed, she became nauseous while lying flat, she sat up and vomited brown liquid.
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
Subjective
Date of Service: October 17, 2023:
Allergies: Aspirin, urticaria
Outpatient meds: cetirizine, clonazepam, timolol eyedrops with dorzolamide,
Current medications: Normal saline IV, subcu heparin, folic acid, thiamine, clonazepam 0.5 mg at bedtime, Cosopt eyedrops, multivitamins
PMH/PSH/FH/SH: Reviewed
Review of systems is negative except as above
White count 13.4, hemoglobin 12.1, potassium 3.1, CO2 26, BUN and creatinine 9 and 0.5,
Brain MRI white matter changes, no evidence of ischemic encephalopathy
ECG yesterday: Top normal QT
Objective
Labs:
10/17/23 03:42
10/17/23 03:42
Labs
Hgb 12.1 g/dL (12.0-16.0) 10/17/23 03:42
Hct 34.8 % (37.0-47.0) L 10/17/23 03:42
Plt Count 251 10^3/uL (130-400) 10/17/23 03:42
Sodium 139 mmol/L (135-145) 10/17/23 03:42
Potassium 3.1 mmol/L (3.5-5.1) L 10/17/23 03:42
BUN 9 mg/dl (7-17) 10/17/23 03:42
Creatinine 0.5 mg/dL (0.6-1.0) L 10/17/23 03:42
Glucose 101 mg/dl (70-99) H 10/17/23 03:42
Troponins
10/15/23
17:05
Troponin I 0.024
Vital Signs and I&O:
Vital Signs
Temp Pulse Resp BP Pulse Ox
37.1 C 80 18 168/82 99
10/17/23 06:49 10/17/23 07:00 10/17/23 06:49 10/17/23 06:48 10/17/23 06:49
Vital Signs
Temp Pulse Resp BP Pulse Ox
37.1 C 80 18 168/82 99
10/17/23 06:49 10/17/23 07:00 10/17/23 06:49 10/17/23 06:48 10/17/23 06:49
Intake & Output
10/15/23 10/16/23 10/17/23 10/18/23
07:59 07:59 07:59 07:59
Intake Total 100 / 100 2500 / 2500 1940 / 1940
Output Total 385 / 385 1800 / 1800 2400 / 2400 400 / 400
Balance -285 / -285 700 / 700 -460 / -460 -400 / -400
Physical Exam
Physical Exam
168/82, pulse 80, respirate 18, afebrile, sats 99%, intake and output -860 mL, sitting in chair, comfortable, no distress, at bedside, head neck exam unremarkable, lungs are clear, regular rate and rhythm, abdomen benign, extremities without
clubbing cyanosis or edema, neuro nonfocal, conversant
[2023-10-17] MEDS: MAGNESIUM OXIDE 500 MG PO (11:55)
[2023-10-17 12:08] VITALS: BP 159/81
[2023-10-17] MEDS: COSOPT EYE DROPS 1 DROP BOTH EYES ×2 (14:23→20:55)
[2023-10-17 15:39] VITALS: BP 153/68
--- NOTE | 2023-10-17 18:27 | PTCARENOTE ---
Pt OOB today walking in halls with a steady gait. RN showed pt and her an ICD device and reviewed procedure and activity restrictions, good understanding verbalized, will review further as needed. Pt with rare lapses in short term memory.
Telemetry shows sinus rhythm with rare short burst to 140.
[2023-10-17 19:05] VITALS: BP 137/62
[2023-10-17] MEDS: VITAMIN B1 100 MG PO (20:55)
[2023-10-17 22:15] VITALS: BP 157/73
[2023-10-17] MEDS: KLONOPIN 0.5 MG PO (22:15)
[2023-10-18] VITALS (9 sets, daily range): BP systolic 145–177; BP diastolic 68–89
[2023-10-18] MEDS: TYLENOL 650 MG PO ×2 (02:26→22:02)
--- NOTE | 2023-10-18 03:07 | PTCARENOTE ---
Pt ambulating as a self. without complaints. Tylenol provided for R shoulder pain 11/14. SR on the monitor.
[2023-10-18 03:19] LABS: ALT (SGPT) 56 U/L (0-35); AST (SGOT) 27 U/L (14-36); Albumin 3.6 g/dl (3.5-5.0); Alkaline Phosphatase 118 U/L (38-126); Blood Urea Nitrogen 11 mg/dl (7-17); Calcium 9.7 mg/dl (8.4-10.2); Carbon Dioxide 29 mmol/L (22-30); Chloride 102 mmol/L (98-107); Estimated Creatinine Clearance 99 ml/min; Glucose 106 mg/dl (70-99); Potassium 4.1 mmol/L (3.5-5.1); Sodium 138 mmol/L (135-145); Total Bilirubin 0.7 mg/dl (0.2-1.3); Total Protein 6.5 g/dl (6.3-8.2); eGFR > 60.00
[2023-10-18] MEDS: COSOPT EYE DROPS 1 DROP BOTH EYES ×2 (09:02→19:34)
[2023-10-18] MEDS: FOLVITE 1 MG PO (09:04)
[2023-10-18] MEDS: MAGNESIUM OXIDE 500 MG PO (09:04)
[2023-10-18] MEDS: VISBIOME 1 CAP PO (09:04)
[2023-10-18] MEDS: VITAMIN B1 100 MG PO ×2 (09:04→19:34)
[2023-10-18] MEDS: HEPARIN 5000 UNITS SC ×2 (09:05→19:34)
[2023-10-18] MEDS: THERAGRAN 1 TABLET PO (09:05)
--- NOTE | 2023-10-18 09:19 | W.PN.HOSP.TC ---
Today's Communication/Plan
-
see bold
Assessment / Plan
Assessment / Plan
57-year-old female with past medical history of anxiety, mitral valve prolapse with mild MR who suffered a cardiac arrest at home with approximately 12 minutes of downtime.� EMS was called and CPR was performed with ROSC.� Patient was intubated
admitted to [facility] ICU.� Prehospital EKG strip showed polymorphic VT and she was shocked 3 times.� She was hypotensive and required Levophed for short time.� She was extubated after 24 hours with TTM. EKG on the morning of transfer to
showed normal sinus rhythm with prolonged QTc of 629.� She had an episode of nausea and vomiting that occurred with 5 seconds of asystole.� She did not receive Zofran.� She then had a 7-second pause.
Gen: remains NAD, Awake and alert
Eyes: remains EOMI, PERRLA, no scleral icterus.
Neck: supple.
CV: RRR, +S1/S2, no m/r/g.
Resp: CTAB, no rales, wheezes, or rhonchi.
Abd: +BS, soft, NT, ND
Skin: No rashes. No LE edema.
Neuro: remains CN 2-12 intact, non-focal.
Psych: Normal mood and affect.
VT arrest status post CPR with ROSC, Polymorphic VT, Prolonged QTc, Heart block up to 7-second pause
-EKG here shows QTc of 571
-10/16/23 cath: Normal coronary arteries. Preserved left ventricular systolic function
-for ICD
Acute encephalopathy:
-currently no evidence of metabolic derangements that would cause encephalopathy
-MRI brain: There are no MR findings considered highly suggestive of hypoxic/ischemic encephalopathy. No evidence for acute intracranial abnormality. Moderate T2 and FLAIR white matter hyperintensities as described, greater than expected for a
57-year-old patient.
-neuro saw in c/s
Chest pain secondary to CPR:
-CXR: Mild elevation of right hemidiaphragm. Minor bibasilar opacity most likely representing subsegmental atelectasis. No pneumothorax.
Nausea/emesis:
-likely sequelae of cardiac arrest, possible component of alcohol withdrawal
-Avoid antiemetics due to QTc prolonging effect
-No abdominal tenderness or evidence of abdominal infection
-no evidence of EtOH withdrawal at this time
-cont MSAS protocol (thiamine/folate/PRN ativan)
Mild Transaminitis:
-likely due to shock liver due to cardiac arrest/alcohol use
-note, h/o cholecystectomy
-improving
Other problems:
Hypokalemia, resolved
Mitral valve prolapse with mild mitral regurgitation
Alcohol use disorder: Thiamine and folate. Alcohol withdrawal protocol.
Anxiety: Continue clonazepam
FULL/heparin
Anticipated Discharge: 24 - 48 hours
Subjective/Interval History
-
Date of Service: October 18, 2023
c/o L shoulder and chest pain which she thinks is likely due to CPR.
Objective Data
-
Labs:
Laboratory Results
10/18/23
02:32
Sodium 138
Potassium 4.1 D
Chloride 102
Carbon Dioxide 29
BUN 11
Creatinine 0.6
Glucose 106 H
Calcium 9.7
Total Bilirubin 0.7
AST 27
ALT 56 H
Alkaline Phosphatase 118
Vital Signs:
Vital Signs
Temp Pulse Resp BP Pulse Ox
97.6 F 91 18 177/73 99
10/18/23 06:42 10/18/23 08:00 10/18/23 06:42 10/18/23 06:42 10/18/23 08:58
I&O
10/17/23 10/18/23 10/19/23
06:59 06:59 06:59
Intake Total 1939 / 1939
Output Total 2400 / 2400 400 / 400
Balance -460 / -460 -400 / -400
[2023-10-18] MEDS: TORADOL 15 MG IV (09:52)
--- NOTE | 2023-10-18 16:09 | W.PN.CARDCBS ---
Today's Communication / Plan
-
ICD for October 19
Impression / Plan
-
PCP: Jasmin Swann, DO
CDY: Filemon Hernandez DO
IMPRESSION:
Out of hospital VT arrest with loss of consciousness 10/13/23
approx 12 min downtime, CPR with ROSC, polymorphic VT shocked 3 times by EMS
s/p TTM treatment and 24 hours of intubation at [facility] prior to transfer
Polymorphic VT shocked 3 times by EMS
Recurrent nausea and vomiting with associated sinus pauses
N/V with 5 second pause, N/V with 7 second pause and no LOC, no Zofran, possibly vagal
Possible anoxic brain injury
Prolonged QTc >600msec
MVP with Mild MR
Elevated LFTs, lactic acid
Prior cholecystectomy
Daily ETOH
NSVT
Echo 10/14/23: [facility] study prior to transfer, EF 55-60%, mild MR
Cardiac catheterization 10/16/2023: Minimal luminal irregularities, EF 50%, LVEDP is 22
PLAN:
Overall, she is doing well.
She was hypokalemic yesterday, potassium today is 4.1.
Will proceed with ICD implantation tomorrow.
HPI: This is a 57 y/o white female, PMH anxiety, MVP with mild MR, sees Dr. Hernandez at [facility] for routine followups. Drinks 2-3 glasses/wine nightly.
Suffered a cardiac arrest at home with approx 12 min downtime. EMS was called, CPR with ROSC, intubated and admitted to [facility] ICU. Prehospital EKG strips with polymorphic VT and she was shocked 3 times. Hypotensive with levophed support for a short
time.
EKG this morning in NSR 60s w/prolonged QTc 629msec. She had an episode of n/v that occurred with 5 seconds asystole. She did not get zofran. She then had a 7 second pause, unclear if related to n/v- asymptomatic, no loss of consciousness. Lactic
Acid was 2.1 and LFTs increased. Echo today with preserved LVSF, EF 55-60%, mild MR. Transfer today for EP eval and possible ICD implant.
On arrival, she is awake and alert but confused, doesn't remember names of her doctors, unable to state location, time, events leading to hospitalization.
Transferring from stretcher to bed, she became nauseous while lying flat, she sat up and vomited brown liquid.
Progress Note - Acquisition Advisor
Subjective
Date of Service: October 18, 2023:
She offers no complaints.
Objective
Labs:
10/17/23 03:42
10/18/23 02:32
Labs
Hgb 12.1 g/dL (12.0-16.0) 10/17/23 03:42
Hct 34.8 % (37.0-47.0) L 10/17/23 03:42
Plt Count 251 10^3/uL (130-400) 10/17/23 03:42
Sodium 138 mmol/L (135-145) 10/18/23 02:32
Potassium 4.1 mmol/L (3.5-5.1) D 10/18/23 02:32
BUN 11 mg/dl (7-17) 10/18/23 02:32
Creatinine 0.6 mg/dL (0.6-1.0) 10/18/23 02:32
Glucose 106 mg/dl (70-99) H 10/18/23 02:32
Troponins
10/15/23
17:05
Troponin I 0.024
Vital Signs and I&O:
Vital Signs
Temp Pulse Resp BP Pulse Ox
36.7 C 86 18 150/80 98
10/18/23 15:34 10/18/23 15:34 10/18/23 15:34 10/18/23 15:34 10/18/23 15:34
Vital Signs
Temp Pulse Resp BP Pulse Ox
36.7 C 86 18 150/80 98
10/18/23 15:34 10/18/23 15:34 10/18/23 15:34 10/18/23 15:34 10/18/23 15:34
Intake & Output
10/16/23 10/17/23 10/18/23 10/19/23
07:59 07:59 07:59 07:59
Intake Total 2500 / 2500 1940 / 1940 480 / 480
Output Total 1800 / 1800 2400 / 2400 400 / 400
Balance 700 / 700 -460 / -460 -400 / -400 480 / 480
Physical Exam
Physical Exam
150/80, pulse 86, head neck exam unremarkable, lungs are clear, regular rate and rhythm, abdomen benign, extremities without clubbing cyanosis or edema distal pulses intact
--- NOTE | 2023-10-18 18:06 | PTCARENOTE ---
Pt reported 8/10 right shoulder discomfort today which was relieved with toradol. Pt up walking in halls. Telemetry shows sinus rhythm. Plan for ICD on 10/19.
--- NOTE | 2023-10-18 21:22 | PTCARENOTE ---
assumed care of patient at the change of shift. AAOx3. ambulating in the halls independently, steady on her feet. SR 70s-90s. increased HR with activity. bp stable. reviewed plan of care with patient and verbalized understanding. NPO at midnight for
an ICD. answered all questions. call stark within reach. calls appropriately.
[2023-10-18] MEDS: KLONOPIN 0.5 MG PO (22:02)
[2023-10-19] VITALS (11 sets, daily range): BP systolic 120–167; BP diastolic 63–119; BMI 25.4
[2023-10-19] MEDS: TYLENOL 650 MG PO ×2 (04:44→16:15)
[2023-10-19 05:33] LABS: ALT (SGPT) 58 U/L (0-35); AST (SGOT) 39 U/L (14-36); Albumin 3.7 g/dl (3.5-5.0); Alkaline Phosphatase 130 U/L (38-126); Blood Urea Nitrogen 11 mg/dl (7-17); Calcium 9.5 mg/dl (8.4-10.2); Carbon Dioxide 27 mmol/L (22-30); Chloride 103 mmol/L (98-107); Estimated Creatinine Clearance 87 ml/min; Glucose 94 mg/dl (70-99); Potassium 4.5 mmol/L (3.5-5.1); Sodium 136 mmol/L (135-145); Total Bilirubin 0.8 mg/dl (0.2-1.3); Total Protein 6.8 g/dl (6.3-8.2); eGFR > 60.00
[2023-10-19] MEDS: THERAGRAN PO (08:00)
[2023-10-19] MEDS: MAGNESIUM OXIDE PO (08:00)
[2023-10-19] MEDS: VITAMIN B1 PO (08:00)
[2023-10-19] MEDS: FOLVITE PO (08:00)
[2023-10-19] MEDS: VISBIOME PO (08:00)
--- NOTE | 2023-10-19 08:09 | W.ICD.CONTRA ---
Post ICD/ANIMAL RIDES MANAGER-D
-
History of AL?: No
LV Function
Left ventricular function study result?: Ejection Fraction >/= 40%
ACEI/ARB/ARNI
Patient already on ACEI/ARB/ARNI: No
ACEI/ARB/ARNI Not Indicated: Left Ventricular EF >/= 40%
Beta-D[place]
Patient already on Beta [place]: No
Beta [place] Not Indicated: Left Ventricular EF >/= 40%
--- NOTE | 2023-10-19 09:11 | PTCARENOTE ---
Rec'd pt from prev nsg shift AAOx3, w/no c/o CP or SOB. Pt c/o 'mild' 3/10 R shoulder pain, but reports 'better w/Tylenol given earlier'. Pt's cognition much improved from when this RN cared for pt last week. Pt still forgetful to the details of her
cardiac event, but pt actually remembered being cared for by this RN & this RN's name from last week. Pt NPO for ICD placement this AM. VS stable. Call stark within reach & no addtl needs at this time. Plan of care ongoing.
--- NOTE | 2023-10-19 09:11 | W.PN.HOSP.TC ---
Today's Communication/Plan
-
see bold
Assessment / Plan
Assessment / Plan
57-year-old female with past medical history of anxiety, mitral valve prolapse with mild MR who suffered a cardiac arrest at home with approximately 12 minutes of downtime.� EMS was called and CPR was performed with ROSC.� Patient was intubated
admitted to [facility] ICU.� Prehospital EKG strip showed polymorphic VT and she was shocked 3 times.� She was hypotensive and required Levophed for short time.� She was extubated after 24 hours with TTM. EKG on the morning of transfer to
showed normal sinus rhythm with prolonged QTc of 629.� She had an episode of nausea and vomiting that occurred with 5 seconds of asystole.� She did not receive Zofran.� She then had a 7-second pause.
Gen: continues to remain NAD, Awake and alert
Eyes: continues to remain EOMI, PERRLA, no scleral icterus.
Neck: supple.
CV: RRR, +S1/S2, no m/r/g.
Resp: CTAB, no rales, wheezes, or rhonchi.
Abd: +BS, soft, NT, ND
Skin: No rashes. No LE edema.
Neuro: continues to remain CN 2-12 intact, non-focal.
Psych: Normal mood and affect.
VT arrest status post CPR with ROSC, Polymorphic VT, Prolonged QTc, Heart block up to 7-second pause
-EKG here shows QTc of 571
-10/16/23 cath: Normal coronary arteries. Preserved left ventricular systolic function
-for ICD today
Acute encephalopathy:
-currently no evidence of metabolic derangements that would cause encephalopathy
-MRI brain: There are no MR findings considered highly suggestive of hypoxic/ischemic encephalopathy. No evidence for acute intracranial abnormality. Moderate T2 and FLAIR white matter hyperintensities as described, greater than expected for a
57-year-old patient.
-neuro saw in c/s
Chest pain secondary to CPR:
-CXR: Mild elevation of right hemidiaphragm. Minor bibasilar opacity most likely representing subsegmental atelectasis. No pneumothorax.
Nausea/emesis:
-likely sequelae of cardiac arrest, possible component of alcohol withdrawal
-Avoid antiemetics due to QTc prolonging effect
-No abdominal tenderness or evidence of abdominal infection
-no evidence of EtOH withdrawal at this time
-cont MSAS protocol (thiamine/folate/PRN ativan)
Mild Transaminitis:
-likely due to shock liver due to cardiac arrest/alcohol use
-note, h/o cholecystectomy
-improved
Other problems:
Hypokalemia, resolved
Mitral valve prolapse with mild mitral regurgitation
Alcohol use disorder: Thiamine and folate. Alcohol withdrawal protocol.
Anxiety: Continue clonazepam
FULL/heparin
Anticipated Discharge: Within 24 hours
Subjective/Interval History
-
Date of Service: October 19, 2023
Denies CP/SOB.
Objective Data
-
Labs:
Laboratory Results
10/19/23
04:46
Sodium 136
Potassium 4.5
Chloride 103
Carbon Dioxide 27
BUN 11
Creatinine 0.6
Glucose 94
Calcium 9.5
Total Bilirubin 0.8
AST 39 H
ALT 58 H
Alkaline Phosphatase 130 H
Vital Signs:
Vital Signs
Temp Pulse Resp BP Pulse Ox
98.4 F 103 18 135/68 95
10/19/23 06:43 10/19/23 08:00 10/19/23 06:43 10/19/23 06:39 10/19/23 06:43
I&O
10/18/23 10/19/23 10/20/23
06:59 06:59 06:59
Intake Total 930 / 930
Output Total 400 / 400
Balance -400 / -400 930 / 930
[2023-10-19] MEDS: HEPARIN SC (09:48)
--- NOTE | 2023-10-19 10:00 | PTOTSP ---
SPEECH THERAPY COGNITIVE COMMUNICATION EVALUATION:
Patient presents with mild cognitive communication impairments characterized by: mildly reduced short-term memory and mildly reduced attention. Cognitive communication impairments are likely related to cardiac arrest. Patient with speech/voice and
expressive/receptive language skills WFL. Patient reports she feels near her baseline level of cognitive communication skills at this time, though not entirely. Recommend Speech therapy services for cognitive communication therapy at the acute care
level. Patient may benefit from outpatient speech therapy services to focus on improving attention and STM upon discharge. Discussed with patient.
RECOMMEND:
1) Speech therapy services for cognitive communication therapy at the acute care level
2) Patient may benefit from outpatient speech therapy services to focus on improving attention and STM upon discharge
--- NOTE | 2023-10-19 11:48 | CM ---
Chart reviewed. Patient is waiting for her AICD. Patient is independent of ADLS, lives with her in a 2 [address], total of 4 SIERRA, 0 DME. Plan is for the patient to return home. CM to follow
--- NOTE | 2023-10-19 14:05 | PTCARENOTE ---
Report given to Krys in the EP lab. Pt prepped an additional time w/CHG wipes to bilat chest. Pt taken in her bed to the EP lab at 1345. Plan of care ongoing.
--- NOTE | 2023-10-19 15:50 | PTCARENOTE ---
Rec'd report from [place] in the EP lab & rec'd pt back to rm ay 1550. Pt AAOx3 w/no c/o CP or SOB post ICD placement. Pt does c/o 4/10 R shoulder pain where she has ecchymosis r/t fall at last wk. PRN Tylenol administered as ordered. Post-procedure
EKG completed & pt instructed on current activity restrictions. Pt verbalized her understanding. Pt w/call stark within reach & no addtl needs at this time.
[2023-10-19] MEDS: COSOPT EYE DROPS 1 DROP BOTH EYES ×2 (16:12→20:35)
--- NOTE | 2023-10-19 16:28 | ITS.CL.ICD ---
Master Cosmetologist - ICD
Implantable Cardioverter Defibrillator
Procedure Report:
ICD IMPLANTATION REPORT
Date of Procedure: October 19, 2023
Primary conservation agent: Filemon Hernandez DO
PROCEDURES:
Single-chamber ICD Implantation
INDICATION FOR PROCEDURE:
Resuscitated cardiac arrest from ventricular tachycardia/ventricular fibrillation
Indication is secondary prevention
HISTORY:
Out of hospital cardiac arrest, ventricular tachycardia. Approximately 12 minutes of downtime resuscitated with CPR and external shock. Initially treated with 24 hours of temperature targeted therapy, extubated and transferred to [facility] for ICD implantation. There is no reversible cause determined for her cardiac arrest. Coronary angiography performed May 16, 2024 finds normal coronary arteries and ventriculography finds no definite wall motion abnormalities, LVEF
is estimated at 50%.
She has continued to clinically improve and presents today for secondary prevention ICD implantation.
Lidocaine with epi was used for local anesthesia. Central venous access was obtained via axillary venipuncture. An incision was made along the left chest and a pre-pectoral pocket was formed. Using a Seldinger technique and peel-away sheaths, the
pacing leads were placed under fluoroscopic guidance.
Once testing (see below) showed adequate and stable function, the leads were secured using the suture sleeves. The pocket was liberally irrigated with antibiotic solution. The leads were connected to the generator header and the leads and
generator were placed within the pocket. Fluoroscopy confirmed stable lead position. The pocket was closed in the typical fashion.
Tyrex antibiotic pouch was used
FLUOROSCOPY:
Fluoroscopy was used to guide lead placement.
IMPLANTS:
ICD Medtronic [id number], SN RSD [id number] S, Left Pectoral
RV Medtronic 6935, SN TDL [id number], RV apical septum
DEVICE TESTING:
Sensing: RV 16 mV
Capture: RV 0.7 V@0.5ms
Ohms: RV 500 and
FINAL PROGRAMMING:
Hiar Pacing: VVI 40 ppm
Tachy parameters:
VF: 188 bpm, Shock
VT: 150 bpm, Monitor
COMPLICATIONS:
None
CONCLUSIONS:
- Successful implant of dual chamber ICD system.
RECOMMENDATIONS:
Post op care (tele, CXR, IV abx).
In-Office wound check in 5-7 days.
Copy to:
Filemon Hernandez, DO
[2023-10-19] MEDS: ANCEF 5 IV (20:33)
[2023-10-19] MEDS: FLUSH (NSS) 1 FLUSH IV (20:34)
[2023-10-19] MEDS: VITAMIN B1 100 MG PO (20:35)
[2023-10-19] MEDS: HEPARIN 5000 UNITS SC (20:35)
[2023-10-19] MEDS: KLONOPIN 0.5 MG PO (23:09)
[2023-10-20] MEDS: TYLENOL 650 MG PO ×3 (01:02→15:20)
--- NOTE | 2023-10-20 02:40 | PTCARENOTE ---
Ambulating in halls with her at start of shift. Took tylenol at 0102 for c/o of a headache with relief. Her right eye seems more open than her left eye, she stated that this is normal for her. Left chest wall ICD site wnl, sling in use.
Remains in SR in the 70's to low 100's.
[2023-10-20 03:54] VITALS: BP 143/73
[2023-10-20] MEDS: ANCEF 5 IV (03:57)
[2023-10-20] MEDS: FLUSH (NSS) 2 FLUSH IV (03:57)
[2023-10-20 05:54] LABS: Hematocrit 34.3 % (37.0-47.0); Hemoglobin 11.6 g/dL (12.0-16.0); Mean Corp Hgb Conc. 33.8 g/dL (33.0-37.0); Mean Corpuscular Volume 82.9 fL (81.0-99.0); Mean Platelet Volume 10.3 fL (7.4-10.4); Platelet Count 317 10^3/uL (130-400); Red Blood Cell Count 4.14 10^6/uL (4.20-5.40); Red Cell Dist. Width 12.5 % (11.5-14.5); White Blood Cell Count 13.8 10^3/uL (4.8-10.8)
[2023-10-20 06:04] LABS: Blood Urea Nitrogen 15 mg/dl (7-17); Calcium 9.1 mg/dl (8.4-10.2); Carbon Dioxide 26 mmol/L (22-30); Chloride 102 mmol/L (98-107); Estimated Creatinine Clearance 87 ml/min; Glucose 91 mg/dl (70-99); Potassium 4.2 mmol/L (3.5-5.1); Sodium 135 mmol/L (135-145); eGFR > 60.00
[2023-10-20 07:44] VITALS: BP 162/80
[2023-10-20 07:45] VITALS: BP 159/83
[2023-10-20] MEDS: FOLVITE 1 MG PO (08:32)
[2023-10-20] MEDS: MAGNESIUM OXIDE 500 MG PO (08:32)
[2023-10-20] MEDS: HEPARIN 5000 UNITS SC (08:32)
[2023-10-20] MEDS: VITAMIN B1 100 MG PO (08:33)
[2023-10-20] MEDS: COSOPT EYE DROPS 1 DROP BOTH EYES (08:33)
[2023-10-20] MEDS: VISBIOME 1 CAP PO (08:33)
[2023-10-20] MEDS: THERAGRAN 1 TABLET PO (08:33)
[2023-10-20 09:40] LABS: ALT (SGPT) 43 U/L (0-35); AST (SGOT) 33 U/L (14-36); Albumin 3.4 g/dl (3.5-5.0); Alkaline Phosphatase 117 U/L (38-126); Total Bilirubin 0.6 mg/dl (0.2-1.3)
--- NOTE | 2023-10-20 10:10 | PTCARENOTE ---
Pt c/o right shoulder pain where it appears that she had an IO access. MD notified. Will monitor.
--- NOTE | 2023-10-20 10:17 | CM ---
Chart reviewed. Patient is independent of ADLS, lives with her in a 2 STH, total of 4 SIERRA, 0 DME. Patient currently with no discharge needs. Plan is for the patient to return home. CM to follow
--- NOTE | 2023-10-20 10:30 | W.PN.CARDCBS ---
Addendum entered and electronically signed by Manuel Wright MD 10/20/23 12:01:
I saw and examined the patient.
The [employer] or PA's note was reviewed and I agree with the note.
Comment: General: Well developed, well nourished in NAD.
Neck: Supple, no JVD, HJR, carotids +2 B/L, no bruits bilaterally.
Heart: Non displaced PMI, RRR, no murmurs, No S3, S4, no rubs.
Lungs: Clear to auscultation bilaterally, no wheeze, rhonchi, rubs bilaterally,
normal expiratory phase.
Left ICD dressings noted
Extremities: No clubbing, cyanosis or edema bilaterally.
Neuro: Grossly nonfocal, awake, alert and oriented x3.
Stable cardiology status for discharge. Follow-up has been arranged.
Original Note:
Today's Communication / Plan
-
No driving until seen in [facility] office for incision check 10/26/23
Needs to ultimately f/u with [facility] cardiology
Impression / Plan
-
PCP: Jasmin Swann DO
CDY: Filemon Hernandez DO
IMPRESSION:
s/p Medtronic single-chamber ICD 10/19/23
Out of hospital VT arrest with loss of consciousness 10/13/23
approx 12 min downtime, CPR with ROSC, polymorphic VT shocked 3 times by EMS
s/p TTM treatment and 24 hours of intubation at [facility] prior to transfer
Polymorphic VT shocked 3 times by EMS
Recurrent nausea and vomiting with associated sinus pauses
N/V with 5 second pause, N/V with 7 second pause and no LOC, no Zofran, possibly vagal
Possible anoxic brain injury
Prolonged QTc >600msec
MVP with Mild MR
Elevated LFTs, lactic acid
Prior cholecystectomy
Daily ETOH
NSVT
Cardiac catheterization 10/16/23: Minimal luminal irregularities, EF 50%, LVEDP is 22
Echo 10/14/23: [facility] study prior to transfer, EF 55-60%, mild MR
PLAN:
-Patient is s/p Medtronic single chamber ICD 10/20/23. Pressure dressing removed and underlying Aquacel in place without drainage or hematoma. Limb restrictions reviewed with patient. Arm immobilizer ordered, she didn't do well with the sling and is
worried about putting elbow above shoulder during sleep.
-Patient is scheduled for an incision check 10/26/23. No driving until then.
-Potassium stable the last 24 hours without supplementation. Remains on magnesium oxide 500 mg daily which was newly started this admission.
-Normal coronary arteries by cath 10/16/23
-Patient scheduled for incision check with [facility], but will continue long-term cardiology care with Dr. Dsouza and [facility] cardiology who cared for her during her [facility] hospitalization.
HPI: This is a 57 y/o white female, PMH anxiety, MVP with mild MR, sees Dr. Hernandez at [facility] for routine followups. Drinks 2-3 glasses/wine nightly.
Suffered a cardiac arrest at home with approx 12 min downtime. EMS was called, CPR with ROSC, intubated and admitted to [facility] ICU. Prehospital EKG strips with polymorphic VT and she was shocked 3 times. Hypotensive with Levophed support for a short
time. EKG this morning in NSR 60s w/prolonged QTc 629msec. She had an episode of n/v that occurred with 5 seconds asystole. She did not get zofran. She then had a 7 second pause, unclear if related to n/v- asymptomatic, no loss of consciousness.
Lactic Acid was 2.1 and LFTs increased. Echo today with preserved LVSF, EF 55-60%, mild MR. Transfer today for EP eval and possible ICD implant. On arrival, she is awake and alert but confused, doesn't remember names of her doctors, unable to state
location, time, events leading to hospitalization. Transferring from stretcher to bed, she became nauseous while lying flat, she sat up and vomited brown liquid.
Progress Note - [employer]
Subjective
Date of Service: October 20, 2023
Feeling well, minimal pain at implant site
Objective
Labs:
10/20/23 04:16
10/20/23 04:16
Labs
Hgb 11.6 g/dL (12.0-16.0) L 10/20/23 04:16
Hct 34.3 % (37.0-47.0) L 10/20/23 04:16
Plt Count 317 10^3/uL (130-400) D 10/20/23 04:16
Sodium 135 mmol/L (135-145) 10/20/23 04:16
Potassium 4.2 mmol/L (3.5-5.1) 10/20/23 04:16
BUN 15 mg/dl (7-17) 10/20/23 04:16
Creatinine 0.6 mg/dL (0.6-1.0) 10/20/23 04:16
Glucose 91 mg/dl (70-99) 10/20/23 04:16
Vital Signs and I&O:
Vital Signs
Temp Pulse Resp BP Pulse Ox
98.4 F 87 16 159/83 97
10/20/23 07:42 10/20/23 10:00 10/20/23 07:42 10/20/23 07:45 10/20/23 07:42
Vital Signs
Temp Pulse Resp BP Pulse Ox
98.4 F 87 16 159/83 97
10/20/23 07:42 10/20/23 10:00 10/20/23 07:42 10/20/23 07:45 10/20/23 07:42
Intake & Output
10/18/23 10/19/23 10/20/23 10/21/23
06:59 06:59 06:59 06:59
Intake Total 930 / 930 960 / 960
Output Total 400 / 400
Balance -400 / -400 930 / 930 960 / 960
Physical Exam
Physical Exam
GEN: No distress, AAO to person and place, but not oriented to situation
HEENT: EOMI, MMM
LUNGS: CTA B/L, no wheezes or rales
CV: Left ACW implant site without hematoma or ecchymosis. Reg, S1/S2, no murmur
ABD: soft, BS+, NT, ND
EXT: No clubbing, cyanosis, lesions or edema B/L
NEURO: Gross non-focal
SKIN: Warm, dry and pink. No rash
[2023-10-20] MEDS: ULTRAM 25 MG PO ×2 (10:32→16:34)
[2023-10-20 12:14] VITALS: BP 126/64
[2023-10-20 15:26] VITALS: BP 152/79
--- NOTE | 2023-10-20 16:17 | W.PN.HOSP.TC ---
Today's Communication/Plan
-
dc to home
Assessment / Plan
Assessment / Plan
57-year-old female with past medical history of anxiety, mitral valve prolapse with mild MR who suffered a cardiac arrest at home with approximately 12 minutes of downtime.� EMS was called and CPR was performed with ROSC.� Patient was intubated
admitted to [facility] ICU.� Prehospital EKG strip showed polymorphic VT and she was shocked 3 times.� She was hypotensive and required Levophed for short time.� She was extubated after 24 hours with TTM. EKG on the morning of transfer to
showed normal sinus rhythm with prolonged QTc of 629.� She had an episode of nausea and vomiting that occurred with 5 seconds of asystole.� She did not receive Zofran.� She then had a 7-second pause.
Gen: continues to remain NAD, Awake and alert
Eyes: continues to remain EOMI, PERRLA, no scleral icterus.
Neck: supple.
CV: RRR, +S1/S2, no m/r/g.
Resp: CTAB, no rales, wheezes, or rhonchi.
Abd: +BS, soft, NT, ND
Skin: No rashes. No LE edema.
Neuro: continues to remain CN 2-12 intact, non-focal.
Psych: Normal mood and affect.
VT arrest status post CPR with ROSC, Polymorphic VT, Prolonged QTc, Heart block up to 7-second pause
-EKG here shows QTc of 571
-10/16/23 cath: Normal coronary arteries. Preserved left ventricular systolic function
-s/p ICD today 10/19
Acute encephalopathy:
-currently no evidence of metabolic derangements that would cause encephalopathy
-MRI brain: There are no MR findings considered highly suggestive of hypoxic/ischemic encephalopathy. No evidence for acute intracranial abnormality. Moderate T2 and FLAIR white matter hyperintensities as described, greater than expected for a
57-year-old patient.
-neuro saw in c/s
Chest pain secondary to CPR:
-CXR: Mild elevation of right hemidiaphragm. Minor bibasilar opacity most likely representing subsegmental atelectasis. No pneumothorax.
Nausea/emesis:
-likely sequelae of cardiac arrest, possible component of alcohol withdrawal
-Avoid antiemetics due to QTc prolonging effect
-No abdominal tenderness or evidence of abdominal infection
-no evidence of EtOH withdrawal at this time
-cont MSAS protocol (thiamine/folate/PRN ativan)
Mild Transaminitis:
-likely due to shock liver due to cardiac arrest/alcohol use
-note, h/o cholecystectomy
-improved
R shoulder pain from I/O access
- xray negative; continue prn Tramadol at home
Other problems:
Hypokalemia, resolved
Mitral valve prolapse with mild mitral regurgitation
Alcohol use disorder: Thiamine and folate. Alcohol withdrawal protocol.
Anxiety: Continue clonazepam
FULL/heparin
More than 30 minutes spent in discharge including
Final examination of the patient
Summarizing hospital stay
Instructions for continuing care to all relevant caregivers
Preparation of discharge records, prescriptions, and referral forms
Total time spent (in minutes): 40
Anticipated Discharge: Today
Subjective/Interval History
-
Date of Service: October 20, 2023
some mild shoulder pain from I/O access during her initial Code, Shoulder Xray neg
Objective Data
-
Labs:
Laboratory Results
10/20/23
04:16
WBC 13.8 H
Hgb 11.6 L
Hct 34.3 L
Plt Count 317 D
Sodium 135
Potassium 4.2
Chloride 102
Carbon Dioxide 26
BUN 15
Creatinine 0.6
Glucose 91
Calcium 9.1
Total Bilirubin 0.6
AST 33
ALT 43 H
Alkaline Phosphatase 117
Vital Signs:
Vital Signs
Temp Pulse Resp BP Pulse Ox
98.2 F 87 18 159/83 100
10/20/23 15:28 10/20/23 10:00 10/20/23 15:28 10/20/23 07:45 10/20/23 15:28
I&O
10/19/23 10/20/23 10/21/23
06:59 06:59 06:59
Intake Total 930 / 930 960 / 960
Balance 930 / 930 960 / 960
Physical Exam
-
General: No Apparent Distress
HEENT: Normocephalic and Atraumatic
Respiratory: Negative Wheezes or Rales
Cardiac: Regular Rhythm and S1/S2
GI: Soft and Nontender
Neuro: AO x 3
Psych: Calm
Data Reviewed
-
Total Time Spent with Patient (in minutes): 45
Labs: Labs Reviewed by me
--- NOTE | 2023-10-20 16:26 | W.DS.TRANS ---
DC Summary - [employer]
-
Discharge Instructions:
Discharge Diagnosis/Procedures Cardiac cath (10/16), ICD implant (10/19)
Diet Regular
Activity Other activity
Driving Restrictions Not until seen by your Dr
Bathing Restrictions OK to Shower
Instructions:
Stand-Alone Forms: DC Instructions- Cath/EP Lab
DC Inst - Implanted Device
Changes to Home Medications: No
Discharge Medications:
DC Medications w/original date entered in [facility]
Lactobacillus acidophilus 1 cap PO DAILY Supplement 10/14/23
cetirizine 10 mg tablet 10 mg PO DAILY PRN allergies 10/14/23
clonazepam 0.5 mg tablet 0.5 mg PO HS Mental Health/Anxiety 10/14/23
dorzolamide 2 %-timolol 0.5 % (PF) eye drops 1 drp LEFT EYE BID Eye Condition 10/14/23
fluticasone propionate 50 mcg/actuation nasal spray,suspension 2 spray intranasal DAILY PRN allergies 10/14/23
multivitamin 1 tab PO DAILY Supplement 10/14/23
tramadol 50 mg tablet 25 mg PO Q6HPRN PRN mod pain #14 tabs 10/20/23
Home Medication Changes
Pending Results: No
Total time spent discharging patient (in min): 40
== END 2023-10-20 18:08 | disposition home or self-care (01) | DRG 275 ==
LOC: IVU 17:38
PROVIDERS: Internal Medicine; Internal Medicine Cardiovascular Disease; Internal Medicine Interventional Cardiology; Nurse Practitioner; Nurse Practitioner Adult Health; Physician Assistant Medical; ADMITTING PHYSICIAN Hospitalist; ATTENDING PHYSICIAN Internal Medicine; FAMILY PHYSICIAN Family Medicine; OTHER PHYSICIAN Student in an Organized Health Care Education/Training Program
PROC: 0T9B70Z Drainage of Bladder with Drainage Device, Via Natural or Artificial Opening (ICD-10-PCS; 2023-10-14)
PROC: 4A023N7 Measurement of Cardiac Sampling and Pressure, Left Heart, Percutaneous Approach (ICD-10-PCS; 2023-10-16)
PROC: B2151ZZ Fluoroscopy of Left Heart using Low Osmolar Contrast (ICD-10-PCS; 2023-10-16)
PROC: B2111ZZ Fluoroscopy of Multiple Coronary Arteries using Low Osmolar Contrast (ICD-10-PCS; 2023-10-16)
PROC: 0JH608Z Insertion of Defibrillator Generator into Chest Subcutaneous Tissue and Fascia, Open Approach (ICD-10-PCS; 2023-10-19)
PROC: 0JH63FZ Insertion of Subcutaneous Defibrillator Lead into Chest Subcutaneous Tissue and Fascia, Percutaneous Approach (ICD-10-PCS; 2023-10-19)
PROC: 3E0102A Introduction of Anti-Infective Envelope into Subcutaneous Tissue, Open Approach (ICD-10-PCS; 2023-10-19)
DX: I47.20 Ventricular tachycardia, unspecified (principal); G93.41 Metabolic encephalopathy; K72.00 Acute and subacute hepatic failure without coma; G93.1 Anoxic brain damage, not elsewhere classified; F10.139 Alcohol abuse with withdrawal, unspecified; I46.2 Cardiac arrest due to underlying cardiac condition; I34.1 Nonrheumatic mitral (valve) prolapse; F41.9 Anxiety disorder, unspecified; R06.02 Shortness of breath; R07.9 Chest pain, unspecified; I45.9 Conduction disorder, unspecified; R11.2 Nausea with vomiting, unspecified; I95.9 Hypotension, unspecified; R41.89 Other symptoms and signs involving cognitive functions and awareness; E87.6 Hypokalemia; M25.511 Pain in right shoulder; Z90.49 Acquired absence of other specified parts of digestive tract; Z88.6 Allergy status to analgesic agent
CPT/HCPCS: 33249; 70551; 71045; 73030; 80048; 80053; 81003; 81015; 82962; 83605; 83735; 84100; 84484; 85025; 85027; 87070; 87086; 92523; 93005; 93458; C1722; C1777; C1892; C1894; Q9967

== ENCOUNTER → 2025-06-23 10:48 | Outpatient (REF) | payer OTHER, SELFPAY | LOC: OHS 10:48 | PROVIDERS: ATTENDING PHYSICIAN Nurse Practitioner Family | DX: Z23 Encounter for immunization (principal) | CPT/HCPCS: 36415; 86480; 86735; 86762; 86765; 86787 ==